=== PATIENT | female | born 1985 | race Two or more races ===

== ENCOUNTER 2024-01-17 16:05 | Emergency (ER) | payer OTHER ==
[~2024-01-17] VITALS: Ht 162.6 cm; Wt 63.6 kg
[2024-01-17 17:12] VITALS: BP 125/79; PULSE 104; RESP 18; TEMP 97.6; O2SAT 98
[2024-01-17] MEDS: HYDROcodone-ACET 5/325MG TAB PO ONE (17:14)
== END 2024-01-17 17:16 | disposition left against medical advice (07) ==
LOC: ER 16:05 → EDBD 16:05 → EEVIPCON 16:05 → ER 17:16
DX: M54.2 Cervicalgia (principal); Z53.21 Procedure and treatment not carried out due to patient leaving prior to being seen by health care provider